=== PATIENT | male | born 1975 | race Caucasian/White ===

== ENCOUNTER 2016-11-03 07:25 | Emergency (ER) | payer SELFPAY ==
[~2016-11-03 07:25] MED LIST: ALBUTEROL5 INH; GLUCOPHAGE1000 MG PO; GLUCOTROL5 PO; INSNOVR SC; K500 PO; LEVEMFLXPN SC; NEUR600 PO; NORCO1 TA1 PO; PCET PO; PRIN5 PO; PROAIR HFA INH
== END 2016-11-03 10:43 | disposition home or self-care (01) ==
LOC: ER 07:25
DX: S93.602A Unspecified sprain of left foot, initial encounter (principal); F17.200 Nicotine dependence, unspecified, uncomplicated; I10 Essential (primary) hypertension; E11.9 Type 2 diabetes mellitus without complications; Z79.4 Long term (current) use of insulin; Z79.899 Other long term (current) drug therapy; Z79.84 Long term (current) use of oral hypoglycemic drugs; X58.XXXA Exposure to other specified factors, initial encounter
CPT/HCPCS: 73610-LT; 73630-LT; 99283; A9270-GY